=== PATIENT | female | born 1985 | race Two or more races ===

== ENCOUNTER 2023-12-01 02:36 | Emergency (ER) | payer MEDICAID, OTHER ==
[~2023-12-01] VITALS: Ht 165.1 cm; Wt 155.5 kg
[2023-12-01 03:04] LABS: Urine Bacteria None Seen /hpf (None Seen)
[2023-12-01 03:22] LABS: Urine Blood Negative /uL (Negative); Urine Clarity Turbid (Clear); Urine Color Light-Yellow (Yellow); Urine Protein, UAD Negative (Negative); Urine Specific Gravity 1.021 (1.001-1.035); Urine Urobilinogen Normal (Negative); Urine WBC 44 /hpf (0 - 5); Urine pH 5.5 (5.0-9.0)
[2023-12-01 04:49] VITALS: BP 136/79; PULSE 71; RESP 18; TEMP 98.3; O2SAT 97
[2023-12-01] MEDS ORDERED: CEPH500C PO (06:52)
== END 2023-12-01 07:04 | disposition home or self-care (01) ==
LOC: ER 02:36
DX: O20.0 Threatened abortion (principal); R10.2 Pelvic and perineal pain; O23.41 Unspecified infection of urinary tract in pregnancy, first trimester; Z3A.11 11 weeks gestation of pregnancy; Z79.899 Other long term (current) drug therapy
CPT/HCPCS: 36415; 76801; 81001; 81025; 84702